=== PATIENT | male | born 1985 | race Caucasian/White ===

== ENCOUNTER 2016-08-23 03:15 | Emergency (ER) | payer OTHER ==
[~2016-08-23] VITALS: Ht 182.9 cm; Wt 117.9 kg
[~2016-08-23 03:15] MED LIST: CETI10TA17 PO; FAMO20TA5 PO; HYDR-1231 PO; METH4TAB PO
[2016-08-23 04:01] LABS: BASOPHILS % (AUTO) 0 % (0-10); EOSINOPHILS # (AUTO) 0.5 10^3/uL (0.0-0.3); EOSINOPHILS % (AUTO) 4 % (0-10); LYMPHOCYTES # (AUTO) 2.2 X 10^3 (1.0-4.0); LYMPHOCYTES % (AUTO) 21 % (12-44); MEAN CORPUSCULAR HEMOGLOBIN 28 PG (25-34); MEAN CORPUSCULAR HGB CONC 36 G/DL (32-36); MEAN CORPUSCULAR VOLUME 79 FL (80-99); MONOCYTES # (AUTO) 1.1 X 10^3 (0.0-1.0); MONOCYTES % (AUTO) 10 % (0-12); NEUTROPHILS # (AUTO) 6.7 X 10^3 (1.8-7.8); NEUTROPHILS % (AUTO) 65 % (42-75); PLATELET COUNT 286 10^3/uL (130-400); RED BLOOD COUNT 5.77 10^6/uL (4.35-5.85); RED CELL DISTRIBUTION WIDTH 13.4 % (10.0-14.5); WHITE BLOOD COUNT 10.4 10^3/uL (4.3-11.0)
[2016-08-23] MEDS ORDERED: LIDOCAINE 1% INJ 20 ML (XYLOCAINE) VIAL INJ ONE (04:45)
[2016-08-23] MEDS ORDERED: methylPREDNISolone 125 MG (Solu-MEDROL) VIAL IM ONE (04:45)
[2016-08-23] MEDS ORDERED: cefTRIAXone 1 GM (ROCEPHIN) VIAL IM ONE (04:45)
[2016-08-23] MEDS ORDERED: BENZ-13 PO (04:47)
[2016-08-23] MEDS ORDERED: LORA1TAB59 PO (04:47)
[2016-08-23] MEDS ORDERED: CEFP500T4 PO (04:47)
[2016-08-23] MEDS ORDERED: METH4TAB PO (04:47)
--- NOTE | 2016-08-23 04:47 | ED Cough/URI ---
General Chief Complaint: Cough/Cold/Flu Symptoms Stated Complaint: STREP THROAT,COUGH Nursing Triage Note: Cough/congestion and sore throat x 10 days. Painful to swallow. Has tried numerous OTC cold products Source: patient History of Present Illness Time seen by provider: 03:45 Initial Comments PT STATES HE HAS HAD A PRODUCTIVE COUGH WITH GREEN SPUTUM, NASAL AND CHEST CONGESTION WITH GREEN NASAL DRAINAGE AND SINUS PAIN/PRESSURE, ALONG WITH A VERY SORE THROAT X 10 DAYS STATES SORE THROAT IS THE MOST SIGNIFICANT COMPLAINT NO KNOWN FEVER NO CHEST PAIN BUT HAS BEEN GETTING SHORT OF BREATH NO SIGNIFICANT IMPROVEMENT WITH OTC MEDICATIONS FOR COUGH/CONGESTION NO KNOWN SICK CONTACTS HAS NOT SOUGHT CARE UNTIL TODAY PCP: DR. FARLEY Allergies and Home Medications Allergies Coded Allergies: Penicillins (Verified Allergy, Intermediate, 05/11/13) Home Medications Benzonatate 100 Mg Capsule #30 1-2 TAB PO TID Prescribed by: DONOVAN OCHOA on 08/23/16446 Cefprozil 500 Mg Tablet #20 500 MG PO BID Prescribed by: DONOVAN OCHOA on 08/23/16446 Loratadine/Pseudoephedrine 1 Each Tab.er.12h #20 1 EACH PO BID Prescribed by: DONOVAN OCHOA on 08/23/16446 Methylprednisolone 4 Mg Tab.ds.pk #1 4 MG PO UD Prescribed by: DONOVAN OCHOA on 08/23/16446 Constitutional: no symptoms reportedNo chills, No diaphoresis, No dizziness, No fever EENTM: ear pain (BILATERAL) nose congestion see HPI throat pain Respiratory: see HPI cough short of breath Cardiovascular: no symptoms reported Gastrointestinal: no symptoms reported Genitourinary: no symptoms reported Musculoskeletal: no symptoms reported Skin: no symptoms reported Psychiatric/Neurological: No Symptoms Reported Hematologic/Lymphatic: No Symptoms Reported Immunological/Allergic: no symptoms reported Past Tgvwwgv-Ffhhxi-Mvyonv Hx Patient Social History Alcohol Use: Occasionally Uses Recreational Drug Use: No Smoking Status: Never a Smoker Type Used: Smokeless Tobacco Recent Foreign Travel: No Contact w/Someone Who Travel: No Recent Infectious Disease Expo: No Recent Hopitalizations: No Seasonal Allergies Seasonal Allergies: No Surgeries HX Surgeries: Yes (RT THUMB) Surgeries: Orthopedic Respiratory Hx Respiratory Disorders: No Cardiovascular Hx Cardiac Disorders: No Neurological Hx Neurological Disorders: No Reproductive System Hx Reproductive Disorders: No Genitourinary Hx Genitourinary Disorders: No Gastrointestinal Hx Gastrointestinal Disorders: No Musculoskeletal Hx Musculoskeletal Disorders: No Endocrine Hx Endocrine Disorders: No HEENT HX ENT Disorders: No Cancer Hx Cancer: No Psychosocial Hx Psychiatric Problems: No Integumentary HX Skin/Integumentary Disorder: Yes (CHRONIC HIVES--UNKNOWN ETIOLOGY) Blood Transfusions Hx Blood Disorders: No Physical Exam Vital Signs Vital Sign - Last 12Hours Capillary Refill : Less Than 3 Seconds General Appearance: WD/WN no apparent distress HEENT: PERRL/EOMINo photophobia, pharyngeal erythemaNo tonsillar exudate, other (TM'S INFLAMED WITH EFFUSIONS BILATERALLY; NASAL MUCOSAL EDEMA WITH CLEAR POST NASAL DRAINAGE, DIFFUSE SINUS TENDERNESS) Neck: non-tender full range of motion supple normal inspectionNo lymphadenopathy (R), No lymphadenopathy (L) Respiratory: normal breath sounds no respiratory distress no accessory muscle use Cardiovascular: normal peripheral pulses regular rate, rhythm no murmur Gastrointestinal: normal bowel sounds non tender soft Extremities: normal inspection normal capillary refill Neurologic/Psychiatric: patient intake coordinator II-XII nml as tested no motor/sensory deficits alert normal mood/affect oriented x 3 Skin: normal color warm/dry Progress/Results/Core Measures Results/Orders Lab Results Laboratory Tests Test 08/23/16 03:50 08/23/16 03:51 Range/Units Basophils # (Auto) 0.0 0.0-0.1 10^3/uL Basophils (%) (Auto) 0 0-10 % Eosinophils # (Auto) 0.5 H 0.0-0.3 10^3/uL Eosinophils (%) (Auto) 4 0-10 % Hematocrit 46 40-54 % Hemoglobin 16.4 13.3-17.7 G/DL Lymphocytes # (Auto) 2.2 1.0-4.0 X 10^3 Lymphocytes (%) (Auto) 21 12-44 % Mean Corpuscular Hemoglobin 28 25-34 PG Mean Corpuscular Hemoglobin Concent 36 32-36 G/DL Mean Corpuscular Volume 79 L 80-99 FL Mean Platelet Volume 9.0 7.4-10.4 FL Monocytes # (Auto) 1.1 H 0.0-1.0 X 10^3 Monocytes (%) (Auto) 10 0-12 % Monoscreen NEGATIVE NEGATIVE Neutrophils # (Auto) 6.7 1.8-7.8 X 10^3 Neutrophils (%) (Auto) 65 42-75 % Platelet Count 286 130-400 10^3/uL Red Blood Count 5.77 4.35-5.85 10^6/uL Red Cell Distribution Width 13.4 10.0-14.5 % White Blood Count 10.4 4.3-11.0 10^3/uL Group A Streptococcus Screen NEGATIVE NEGATIVE Micro Results Microbiology 08/23/16 Influenza Types A,B Antigen (YESSICA) - Final, Complete My Orders Orders-DONOVAN OCHOA DO Cbc With Automated Diff (08/23/16 03:44) Monotest (08/23/16 03:44) Rapid Strep A Screen (08/23/16 03:44) Influenza A And B Antigens (08/23/16 03:44) Ceftriaxone Injection (Rocephin Injectio (08/23/16 04:45) Lidocaine 1% Injection (Xylocaine 1% Inj (08/23/16 04:45) Methylprednisolone Sod Succ (Solu-Medrol (08/23/16 04:45) Vital Signs/I&O Vital Sign - Last 12Hours 08/23/16 08/23/16 03:30 03:30 Temp 98.2 Pulse 93 Resp 20 B/P 146/102 Pulse Ox 96 O2 Delivery Room Air Room Air Blood Pressure Mean: 117 Progress Note : Progress Note NO SIGNIFICANT COUGH OR DYSPNEA NOTED DURING ER STAY Departure Impression Impression: Primary Impression: Pharyngitis Additional Impressions: Sinusitis Acute bronchitis Bilateral otitis media Disposition: 01 HOME, SELF-CARE Condition: Stable Departure-Patient Inst. Referrals: ROLAND FARLEY MD (PCP/Family) Primary Care Physician Patient Instructions: Acute Bronchitis, Adult (DC), Ear Infections (Otitis Media) (DC), Sinusitis, Adult (DC), Sore Throat, Adult (DC) Add. Discharge Instructions: ALTERNATE TYLENOL AND MOTRIN NEEDED FOR PAIN OR FEVER ROBITUSSIN DM FOR COUGH FREQUENT SALT WATER GARGLES LOTS OF CLEAR LIQUIDS FOLLOW UP WITH YOUR DR IN 3-4 DAYS IF NO BETTER All discharge instructions reviewed with patient and/or family. Voiced understanding. Scripts Benzonatate (Tessalon Perle)100 Mg Capsule1-2 Tab PO TID Cough #30 CAP Prov:DONOVAN OCHOA DO 08/23/16 Loratadine/Pseudoephedrine (Claritin-D 12 Hour Tablet)1 Each Tab.er.12h1 Each PO BID #20 TAB Prov:DONOVAN OCHOA DO 08/23/16 Methylprednisolone (Medrol)4 Mg Tab.ds.pk4 Mg PO UD #1 PKG Prov:DONOVAN OCHOA DO 08/23/16 Cefprozil 500 Mg [id number] Mg PO BID #20 TAB Prov:DONOVAN OCHOA DO 08/23/16 DONOVAN OCHOA DO Aug 23, 2016 04:47
[2016-08-23 05:01] VITALS: BP 146/102
== END 2016-08-23 05:01 | disposition home or self-care (01) ==
LOC: EDUNIT# 03:15 → ER 03:18
DX: J02.9 Acute pharyngitis, unspecified (principal); J01.90 Acute sinusitis, unspecified; J20.9 Acute bronchitis, unspecified; H65.193 Other acute nonsuppurative otitis media, bilateral
CPT/HCPCS: 36415; 85025; 86308; 87430; 87804; 96372; 99283

== ENCOUNTER → 2017-08-29 | Outpatient (CLI) | payer OTHER ==
[~2017-08-29] MED LIST changes: +BENZ-13 PO; +CEFP500T4 PO; +LORA1TAB59 PO
--- NOTE | 2017-08-29 11:50 | Diagnostic Imaging Report ---
INDICATION: Hemoptysis and hematemesis PA and lateral chest obtained at 1154 hrs am. Heart and mediastinal silhouette are normal in appearance. The lungs are clear. There is no pneumothorax or pleural fluid. IMPRESSION: Negative chest. Dictated by: Dictated on workstation # [id number]
== END ==
LOC: RAD 11:22
PROVIDERS: ATTEND Internal Medicine
DX: K92.0 Hematemesis (principal)
CPT/HCPCS: 71046

== ENCOUNTER → 2021-01-25 | Outpatient (CLI) | payer BC ==
[~2021-01-25] MED LIST changes: +ACET-2267 PO; +AZIT250T12 PO; -BENZ-13 PO; +BENZ100C18 PO; +CEPH-507 PO
--- NOTE | 2021-01-25 12:54 | Diagnostic Imaging Report ---
EXAMINATION: Left shoulder at 11:11 a.m. INDICATION: Shoulder injury. Four views were obtained. There is mild deformity of the midshaft of the left clavicle. This finding was also evident on the prior chest exam of 01/09/2020 and consequently is most likely long-standing in nature. There is no fracture, dislocation or acute bony abnormality evident. There is mild degenerative disease involving the glenohumeral and acromioclavicular joints. The soft tissues are unremarkable. IMPRESSION: 1. There is a long-standing fracture of the midshaft of the left clavicle but there is no sign of an acute bony abnormality. Dictated by: Dictated on workstation # [id number]
== END ==
LOC: RAD 10:50
PROVIDERS: ATTEND Chiropractor Sports Physician
DX: S42.022A Displaced fracture of shaft of left clavicle, initial encounter for closed fracture (principal); X58.XXXA Exposure to other specified factors, initial encounter
CPT/HCPCS: 73030

== ENCOUNTER 2021-06-21 08:44 | Emergency (ER) | payer BC ==
[~2021-06-21] VITALS: Ht 182 cm; Wt 129.0 kg
[2021-06-21] MEDS ORDERED: NS IV 1000 ML 1,000 ML IV SCH (09:00)
[2021-06-21] MEDS ORDERED: KETOROLAC 30 MG/ML VIAL IVP ONE (09:00)
[2021-06-21] MEDS ORDERED: ONDANSETRON 4 MG/2 ML (SDV) Z0FRAN IVP ONE (09:00)
--- NOTE | 2021-06-21 09:07 | ED Dyspnea ---
General Stated Complaint: CP,FEVER,N/V,SOB Source of Information: Patient Exam Limitations: No Limitations History of Present Illness Date Seen by Provider: Jun 21, 2021 Time Seen by Provider: 08:50 Initial Comments Patient is a 36-year-old male who presents to the emergency department today with a chief complaint of left-sided chest pain, nausea vomiting, fever and shortness of breath. Patient states he recently taken a couple of days off work and yesterday fairly abruptly had an onset of fever, shaking chills. Throughout the evening last night he developed cough and shortness of breath. At about 8 PM last night he developed some left-sided chest pain that wraps around his chest under his left shoulder blade. He states it hurts to take a deep breath. His cough is nonproductive. His temp has been as high as 103/104. Patient states he was up all night. His last dose of Tylenol was at about 7 AM this morning. He does not have any chronic medical conditions but states that his primary care doctor wanted to start him on antihypertensives about a year and a half ago. He declined to take them. He does endorse headache. He has had a little diarrhea. No problems with urination. He does state that he has had a little lower extremity swelling. Denies sick contacts but did have a family gathering for Thanksgiving, had contact with 2 family members that are nonvaccinated. Patient himself is Covid vaccinated about 6 months ago, also has had Covid previously. He does not smoke. Does have a family history in grandparents of coronary artery disease with in their 50s. Unknown family history of blood comfort tting disorders. All other review of systems reviewed and negative except as stated. Timing/Duration: 24 Hours Severity: Severe Activities at Onset: None Associated Symptoms: Chest Pain, Cough, Edema, Fever, Other (nausea) Allergies and Home Medications Allergies Coded Allergies: Sulfa (Sulfonamide Antibiotics) (Verified Allergy, Unknown, 06/21/21) Patient Home Medication List Home Medication List Reviewed: Yes Acetaminophen (Tylenol Extra Strength) 500 Mg Tablet, 1,000 MG PO Q8H PRN for PAIN-MILD (1-4) OR TEMPATURE, (Reported) Entered as Reported by: JAMIE BACON on 01/09/20 0820 Albuterol Sulfate (Proair Hfa) 1 Puff Puff, 2 PUFF IH Q4H Prescribed by: EDWIN KHAN on 06/21/21 1231 Azithromycin (Azithromycin) 250 Mg Tablet, 250 MG PO DAILY Prescribed by: CHAD SHAW on 01/10/20 1233 Azithromycin (Azithromycin) 250 Mg Tablet, 250 MG PO DAILY Prescribed by: EDWIN KHAN on 06/21/21 1207 Cefdinir (Cefdinir) 300 Mg Capsule, 300 MG PO BID Prescribed by: EDWIN KHAN on 06/21/21 1207 Cephalexin (Keflex) 500 Mg Capsule, 500 MG PO BID Prescribed by: CHAD SHAW on 01/10/20 1233 Hydrocodone/Acetaminophen (Hydrocodone-Acetamin 7.5-325) 1 Each Tablet, 1 EACH PO Q6H PRN for pain Prescribed by: EDWIN KHAN on 06/21/21 1208 Review of Systems Review of Systems Constitutional: see HPI, chills, diaphoresis, fever, weakness EENTM: no symptoms reported Respiratory: cough, short of breath Cardiovascular: chest pain (left sided) Gastrointestinal: diarrhea, nausea, vomiting Genitourinary: no symptoms reported Musculoskeletal: no symptoms reported Skin: no symptoms reported Psychiatric/Neurological: Headache All Other Systems Reviewed Negative Unless Noted: Yes Past Mvfwscg-Ujshdf-Hywlvq Hx Seasonal Allergies Seasonal Allergies: No Past Medical History Orthopedic Reproductive Disorders: No Family Medical History Patient reports no known family medical history. No Pertinent Family Hx Physical Exam Vital Signs Vital Signs - First Documented 06/21/21 08:50 Temp 38.1 Pulse 138 Resp 26 B/P (MAP) 191/126 (147) Pulse Ox 97 O2 Delivery Room Air Capillary Refill : Height, Weight, BMI Height: 6'0" Weight: 260lbs. oz. [id number]; 38.46 BMI Method:Stated General Appearance: Anxious (mildly), Mild Distress (SOB) HEENT: PERRL/EOMI Neck: Normal Inspection Respiratory: Respiratory Distress (mild; O2 sats 96/97% on RA), Other (diminished breath sounds on the left with occasional crackles; pleuritic pain on the left with deep inspiration) Cardiovascular: Regular Rate, Rhythm, Normal Peripheral Pulses, Tachycardia (130) Gastrointestinal: Normal Bowel Sounds, Non Tender, Soft Extremity: Normal Capillary Refill, Normal Range of Motion, No Calf Tenderness, Pedal Edema (trace) Neurologic/Psychiatric: Alert, Oriented x3, No Motor/Sensory Deficits, Normal Mood/Affect Skin: Normal Color, Warm/Dry Focused Exam Sepsis Stage: Sepsis Possible Source: Pulmonary Lactate Level 06/21/21 09:00: Lactic Acid Level 4.15*H 06/21/21 11:00: Lactic Acid Level 1.28 Time of Focused Exam: 10:45 Respiratory: Crackles (left), Decreased Breath Sounds (left) Cardiovascular: Regular Rate, Rhythm, Tachycardia (110) Capillary Refill: Less Than 3 Seconds Peripheral Pulses: 2+ Radial Pulses (R), 2+ Radial Pulses (L) Skin: normal color, diaphoresis Lactic Acid Level Laboratory Tests Test 06/21/21 09:00 06/21/21 11:00 Lactic Acid Level 4.15 MMOL/L (0.50-2.00) *H 1.28 MMOL/L (0.50-2.00) Within 3hrs of presentation: Admin fluids, Admin 30ml/kg IBW due to BMI>30, Bl ood cultures prior to ABX's, Focus exam, Lactate level Progress/Results/Core Measures Results/Orders Lab Results Laboratory Tests Test 06/21/21 09:00 06/21/21 11:00 Range/Units White Blood Count 24.2 H 4.3-11.0 10^3/uL Red Blood Count 5.40 4.30-5.52 10^6/uL Hemoglobin 15.6 13.3-17.7 g/dL Hematocrit 44 40-54 % Mean Corpuscular Volume 82 80-99 fL Mean Corpuscular Hemoglobin 29 25-34 pg Mean Corpuscular Hemoglobin Concent 35 32-36 g/dL Red Cell Distribution Width 13.3 10.0-14.5 % Platelet Count 237 130-400 10^3/uL Mean Platelet Volume 9.1 9.0-12.2 fL Immature Granulocyte % (Auto) 1 % Neutrophils (%) (Auto) 90 H 42-75 % Lymphocytes (%) (Auto) 5 L 12-44 % Monocytes (%) (Auto) 5 0-12 % Eosinophils (%) (Auto) 0 0-10 % Basophils (%) (Auto) 0 0-10 % Neutrophils # (Auto) 21.7 H 1.8-7.8 10^3/uL Lymphocytes # (Auto) 1.2 1.0-4.0 10^3/uL Monocytes # (Auto) 1.1 H 0.0-1.0 10^3/uL Eosinophils # (Auto) 0.0 0.0-0.3 10^3/uL Basophils # (Auto) 0.1 0.0-0.1 10^3/uL Immature Granulocyte # (Auto) 0.2 H 0.0-0.1 10^3/uL Neutrophils % (Manual) 71 % Lymphocytes % (Manual) 6 % Monocytes % (Manual) 8 % Band Neutrophils 15 % Toxic Granulation 1+ Blood Morphology Comment NORMAL Prothrombin Time 15.3 H 12.2-14.7 SEC INR Comment 1.2 0.8-1.4 Activated Partial Thromboplast Time 31 24-35 SEC D-Dimer 0.53 H 0.00-0.49 UG/ML Sodium Level 132 L 135-145 MMOL/L Potassium Level 4.1 3.6-5.0 MMOL/L Chloride Level 100 98-107 MMOL/L Carbon Dioxide Level 21 21-32 MMOL/L Anion Gap 11 5-14 MMOL/L Blood Urea Nitrogen 10 7-18 MG/DL Creatinine 1.24 0.60-1.30 MG/DL Estimat Glomerular Filtration Rate 67 BUN/Creatinine Ratio 8 Glucose Level 193 H 70-105 MG/DL Lactic Acid Level 4.15 *H 1.28 0.50-2.00 MMOL/L Calcium Level 10.1 8.5-10.1 MG/DL Corrected Calcium 9.9 8.5-10.1 MG/DL Total Bilirubin 0.9 0.1-1.0 MG/DL Aspartate Amino Transf (AST/SGOT) 29 5-34 U/L Alanine Aminotransferase (ALT/SGPT) 49 0-55 U/L Alkaline Phosphatase 97 40-136 U/L Troponin I < 0.028 <0.028 NG/ML C-Reactive Protein High Sensitivity 19.54 H 0.00-0.50 MG/DL B-Type Natriuretic Peptide 52.8 <100.0 PG/ML Total Protein 7.9 6.4-8.2 GM/DL Albumin 4.2 3.2-4.5 GM/DL Procalcitonin 2.08 H <0.10 NG/ML Influenza Type A (RT-PCR) Not Detected Not Detecte Influenza Type B (RT-PCR) Not Detected Not Detecte SARS-CoV-2 RNA (RT-PCR) Not Detected Not Detecte My Orders Orders - EDWIN KHAN MD Cbc With Automated Diff (06/21/21 08:59) Comprehensive Metabolic Panel (06/21/21 08:59) Blood Culture (06/21/21 08:59) Sputum Culture (06/21/21 08:59) Protime With Inr (06/21/21 08:59) Partial Thromboplastin Time (06/21/21 08:59) Chest 1 View, Ap/Pa Only (06/21/21 08:59) Ed Iv/Invasive Line Start (06/21/21 08:59) Ed Iv/Invasive Line Start (06/21/21 08:59) Vital Signs Adult Sepsis Patie Q15M (06/21/21 08:59) O2 (06/21/21 08:59) Remove Rings In Anticipation O (06/21/21 08:59) Lactic Acid Analyzer (06/21/21 08:59) Procalcitonin (Pct) (06/21/21 08:59) Hs C Reactive Protein (06/21/21 08:59) Fibrin Degradation Products (06/21/21 08:59) Troponin I (06/21/21 08:59) BNP (06/21/21 08:59) Ekg Tracing (06/21/21 08:59) Ns Iv 1000 Ml (Sodium Chloride 0.9%) (06/21/21 09:00) Ketorolac Injection (Toradol Injection) (06/21/21 09:00) Ondansetron Injection (Zofran Injectio (06/21/21 09:00) Covid 19 Inhouse Test (06/21/21 08:59) Influenza A And B By Pcr (06/21/21 08:59) Manual Differential (06/21/21 09:00) Ns Iv 1000 Ml (Sodium Chloride 0.9%) (06/21/21 10:15) Ceftriaxone 1 Gm Pre-Mix (Rocephin 1 Gm (06/21/21 10:45) Azithromycin Injection (Zithromax Inject (06/21/21 10:45) Acetaminophen Tablet (Tylenol Tablet) (06/21/21 12:15) Hydrocodone/Apap 7.5/325 Tab (Lortab 7. (06/21/21 13:45) Medications Given in ED Current Medications Medications Dose Ordered Sig/Yaritza Route Start Time Stop Time Status Last Admin Dose Admin Acetaminophen 1,000 mg ONCE ONCE PO 06/21/21 12:15 06/21/21 12:16 DC 06/21/21 12:19 1,000 MG Acetaminophen/ Hydrocodone Bitart 1 ea ONCE ONCE PO 06/21/21 13:45 06/21/21 13:46 DC 06/21/21 13:50 1 EA Azithromycin 500 mg/Sodium Chloride 250 ml @ 250 mls/hr ONCE ONCE IV 06/21/21 10:45 06/21/21 11:44 DC 06/21/21 11:44 250 MLS/HR Ceftriaxone Sodium/Dextrose 50 ml @ 100 mls/hr ONCE ONCE IV 06/21/21 10:45 06/21/21 11:14 DC 06/21/21 11:11 100 MLS/HR Ketorolac Tromethamine 15 mg ONCE ONCE IVP 06/21/21 09:00 06/21/21 09:03 DC 06/21/21 09:10 15 MG Ondansetron HCl 8 mg ONCE ONCE IVP 06/21/21 09:00 06/21/21 09:03 DC 06/21/21 09:11 8 MG Vital Signs/I&O 06/21/21 06/21/21 06/21/21 06/21/21 08:50 09:22 09:23 09:31 Temp 38.1 Pulse 138 120 116 Resp 26 24 24 B/P (MAP) 191/126 (147) 168/95 155/96 Pulse Ox 97 95 95 96 O2 Delivery Room Air Room Air Room Air 06/21/21 06/21/21 06/21/21 06/21/21 09:48 11:52 12:19 12:53 Temp 38.8 Pulse 118 114 125 120 Resp 20 28 B/P (MAP) 155/96 133/107 150/107 147/86 Pulse Ox 96 97 97 97 O2 Delivery Room Air Room Air Room Air Room Air 06/21/21 06/21/21 13:41 13:52 Temp 39.0 Pulse 123 122 B/P (MAP) 157/105 157/105 Pulse Ox 96 96 O2 Delivery Room Air Progress Progress Note #1: Time: 11:12 Progress Note Patient presents to the emergency department today with a chief complaint of shortness of breath, left-sided chest pain fever cough body aches headache. Evaluation today includes a sepsis work-up including cardiac evaluation performed. Patient initially given 1 L of IV fluids, work-up reveals significant leukocytosis with left-sided infiltrates. Patient was quite tachycardic at presentation with mild fever. He responded well to Toradol and 1 L of IV fluids. At no time was he hypotensive. I did not feel that he needed the 30 mils per kilogram fluid bolus initially. After completion of the first liter patient was given an additional 2 L of fluids. His 30 mill per kilogram fluid bolus would be about 3700 mL. He still has good blood pressures 140s over 90s. Heart rate is down to 110. He will be treated for community-acquired pneumonia with Rocephin and azithromycin. Oxygen saturations are 94 to 95%. This is on room air. I anticipate that he will be able to be discharged home on oral antibiotics. Patient's heart rate is back up into the 120 range. He is a little bit ta chypneic, oxygen saturations are still at about 97% on room air. Diastolic is a little bit over 100. We will give him a dose of Tylenol for a fever that is now 101.7. He is still receiving azithromycin IV. We will wait for discharge until his fever comes down. Progress Note #2: Time: 13:43 Progress Note Patient reassessed, blood pressure is still down but the diastolic is still about 103. Heart rate is 1 18-1 22. Oxygen saturations 95% on room air. Resp irations are even and unlabored. He states that he feels like he can take a little bit deeper breaths. Antibiotics have been infused. I have talked to the patient and his about discharge. He really wants to be discharged home. He is not vomiting, I think that he can hold down medications as prescribed. I have given him good return precautions such as if he develops increasing respiratory distress, fever that does not come down with Tylenol or ibuprofen, any other emergent concerning symptoms that he has to come back to the emergency department and be admitted to the hospital. Patient verbalizes understanding of the plan of care. All questions are sought and answered. Initial ECG Impression Date: Jun 21, 2021 Initial ECG Impression Time: 09:01 Initial ECG Rate: 127 Initial ECG Rhythm: S.Tach Initial ECG Intervals: Normal Initial ECG Impression: Normal Diagnostic Imaging Diagonstic Imaging: Xray Plain Films/CT/US/NM/MRI: chest Comments [facility] [place] NAME: VIRGINIA PALACIO [facility] REC#: [id number] PT STATUS: REG ER : 1985 PHYSICIAN: EDWIN KHAN MD ADMIT DATE: 06/21/21/ER Draft Date of Exam:06/21/21 CHEST 1 VIEW, AP/PA ONLY INDICATION: Fever, cough, inspiratory chest pain. COMPARISON: Chest x-ray of 01/09/2020. FINDINGS: New airspace consolidation in the left lung has developed, consistent with pneumonia. There is no obscuration of the left heart border or left diaphragm. This may be in the upper lobe or superior segment of the left lower lobe. No associated pleural fluid. The right lung is clear. The heart size and vascularity are within normal limits. IMPRESSION: Left lung pneumonia without pleural fluid or failure pattern. Dictated on workstation # [id number] Dict: 06/21/21 1038 Trans: 06/21/21 1041 [id number] Interpreted by: ASTON MCDERMOTT Electronically signed by: Departure Impression Primary Impression: Pneumonia involving left lung Qualified Codes: J18.9 - Pneumonia, unspecified organism Additional Impressions: High blood pressure Qualified Codes: I10 - Essential (primary) hypertension Elevated blood sugar level Disposition: HOME, SELF-CARE Condition: Improved Departure-Patient Inst. Decision time for Depature: 12:04 Referrals: ROLAND FARLEY MD (PCP/Family) Primary Care Physician Patient Instructions: Community-Acquired Pneumonia, Adult (DC), LOCAL PHYSICIAN LIST Add. Discharge Instructions: Drink lots of fluids to stay well-hydrated. Take [id number] ibuprofen, 800 mg, every 8 hours as needed with food for pain. I have also given you a prescription for hydrocodone, 7.5 mg tablets. You can take one every 6 hours as needed for more severe pain. Please do not drive and take this medication. Use caution with this medication as it can make you sleepy. You should be taking a stool softener while you are taking narcotic pain medicine. Antibiotics, cefdinir 300 mg twice a day for a total of 10 days. Azithromycin 250 mg, once a day for 4 days starting tomorrow. Albuterol Inhaler 2 puffs every 4-6 hours as needed for wheezing/shortness of breath. Please try and take deep breaths to keep your lungs well expanded. Return to the emergency room if you have worsening shortness of breath, fever that is not controlled with Tylenol or ibuprofen or any other emergent concerning symptoms. I have provided you the local physician list to help you find a new doctor. Be sure and have your blood pressure rechecked, as well as your blood sugar when you follow-up with a primary care doctor. Scripts Albuterol Sulfate (PROAIR HFA) 1 Puff Puff 2 PUFF IH Q4H for shortness of breath, #1 EA 1 PUFF = 90 MCG Prov: EDWIN KHAN MD 06/21/21 Hydrocodone/Acetaminophen (Hydrocodone-Acetamin 7.5-325) 1 Each Tablet 1 EACH PO Q6H PRN for pain, #12 TAB Prov: EDWIN KHAN MD 06/21/21 Azithromycin (Azithromycin) 250 Mg Tablet 250 MG PO DAILY, #4 TAB 0 Refills Prov: EDWIN KHAN MD 06/21/21 Cefdinir (Cefdinir) 300 Mg Capsule 300 MG PO BID, #20 CAP 0 Refills Prov: EDWIN KHAN MD 06/21/21 EDWIN KHAN MD Jun 21, 2021 09:07
[2021-06-21 09:45] LABS: BASOPHILS # (AUTO) 0.1 10^3/uL (0.0-0.1); BASOPHILS % (AUTO) 0 % (0-10); EOSINOPHILS % (AUTO) 0 % (0-10); HEMATOCRIT 44 % (40-54); HEMOGLOBIN 15.6 g/dL (13.3-17.7); LYMPHOCYTES # (AUTO) 1.2 10^3/uL (1.0-4.0); LYMPHOCYTES % (AUTO) 5 % (12-44); MEAN CORPUSCULAR HEMOGLOBIN 29 pg (25-34); MEAN CORPUSCULAR HGB CONC 35 g/dL (32-36); MEAN CORPUSCULAR VOLUME 82 fL (80-99); MEAN PLATELET VOLUME 9.1 fL (9.0-12.2); MONOCYTES # (AUTO) 1.1 10^3/uL (0.0-1.0); MONOCYTES % (AUTO) 5 % (0-12); NEUTROPHILS # (AUTO) 21.7 10^3/uL (1.8-7.8); NEUTROPHILS % (AUTO) 90 % (42-75); PLATELET COUNT 237 10^3/uL (130-400); WHITE BLOOD COUNT 24.2 10^3/uL (4.3-11.0)
[2021-06-21 10:02] LABS: FIBRIN DEGRADATION PRODUCTS 0.53 UG/ML (0.00-0.49); INR 1.2 (0.8-1.4); PROTHROMBIN TIME PATIENT 15.3 SEC (12.2-14.7)
[2021-06-21 10:03] LABS: BAND NEUTROPHILS 15 %; LYMPHOCYTES % (MANUAL) 6 %; MONOCYTES % (MANUAL) 8 %; NEUTROPHILS % (MANUAL) 71 %; RBC MORPH NORMAL
[2021-06-21 10:04] LABS: ALBUMIN 4.2 GM/DL (3.2-4.5); CHLORIDE 100 MMOL/L (98-107); POTASSIUM 4.1 MMOL/L (3.6-5.0); SODIUM 132 MMOL/L (135-145); TOXIC GRANULATION/VACUOLAZATIO 1+
[2021-06-21 10:06] LABS: CALCIUM 10.1 MG/DL (8.5-10.1)
[2021-06-21 10:07] LABS: GLUCOSE 193 MG/DL (70-105); TOTAL PROTEIN 7.9 GM/DL (6.4-8.2)
[2021-06-21 10:08] LABS: BILIRUBIN,TOTAL 0.9 MG/DL (0.1-1.0); CARBON DIOXIDE 21 MMOL/L (21-32)
[2021-06-21 10:10] LABS: ALKALINE PHOSPHATASE 97 U/L (40-136); CREATININE SERUM 1.24 MG/DL (0.60-1.30); GFR ESTIMATED 67
[2021-06-21 10:11] LABS: BUN/CREATININE RATIO 8
[2021-06-21 10:13] LABS: ALANINE AMINOTRANSFERASE 49 U/L (0-55)
[2021-06-21] MEDS: NS IV 1000 ML 1,000 ML IV SCH ×2 (10:35→11:11)
--- NOTE | 2021-06-21 10:42 | Diagnostic Imaging Report ---
INDICATION: Fever, cough, inspiratory chest pain. COMPARISON: Chest x-ray of 01/09/2020. FINDINGS: New airspace consolidation in the left lung has developed, consistent with pneumonia. There is no obscuration of the left heart border or left diaphragm. This may be in the upper lobe or superior segment of the left lower lobe. No associated pleural fluid. The right lung is clear. The heart size and vascularity are within normal limits. IMPRESSION: Left lung pneumonia without pleural fluid or failure pattern. Dictated by: Dictated on workstation # [id number]
[2021-06-21] MEDS ORDERED: AZITHROMYCIN INJECTION 500 MG in NS (IVPB) 250 ML IV ONE (10:45)
[2021-06-21] MEDS ORDERED: cefTRIAXone 1 GM PRE-MIX 50 ML IV ONE (10:45)
[2021-06-21] MEDS ORDERED: AZIT250T12 PO (12:07)
[2021-06-21] MEDS ORDERED: CEFD300C3 PO (12:07)
[2021-06-21] MEDS ORDERED: HYDR-3817 PO (12:08)
[2021-06-21] MEDS ORDERED: ACETAMINOPHEN 500 MG TAB (TYLENOL) PO ONE (12:15)
[2021-06-21] MEDS ORDERED: RT-ALBUINH IH (12:31)
[2021-06-21] MEDS ORDERED: HYDROcodone/APAP 7.5 MG/325 MG (LORTAB, LORCET PLUS) TABLET PO ONE (13:45)
[2021-06-21 13:52] VITALS: BP 157/105
== END 2021-06-21 13:55 | disposition home or self-care (01) ==
LOC: EDUNIT# 08:44 → ER 08:46
DX: J18.9 Pneumonia, unspecified organism (principal); I10 Essential (primary) hypertension; R73.9 Hyperglycemia, unspecified; R00.0 Tachycardia, unspecified; Z20.822 Contact with and (suspected) exposure to COVID-19
CPT/HCPCS: 36415; 71045; 80053; 83605; 83880; 84145; 84484; 85007; 85027; 85379; 85610; 85730; 86141; 87040; 87636; 93005